=== PATIENT | male | born 1950 | race African-American/Black ===

== ENCOUNTER 2017-01-30 09:01 | Day surgery (SDC) | payer BC ==
[~2017-01-30] VITALS: Ht 190.5 cm; Wt 77.1 kg
[2017-01-30] VITALS (8 sets, daily range): BP systolic 101–134; BP diastolic 47–69
[~2017-01-30 09:01] MED LIST: ADVAIR 250-501 EACH INH; PANTOPRAZOLE SO40 MG ORAL; PREDNISONE PO
[2017-01-30] MEDS ORDERED: Lidocaine 1% MPF 10mg/ml 5ml ONE (09:02)
[2017-01-30] MEDS ORDERED: Propofol 10mg/ml 20ml IV ONE (09:02)
--- NOTE | 2017-01-30 10:44 | Short Stay Surgery H&P ---
History of Present Illness History of Present Illness Chief Complaint wt loss HPI Ap Loera is a 66 year old male who was admitted on for Abdominal Pain, Colon Screening Patient History Allergies: Coded Allergies: No Known Allergies (Unverified , 08/31/16) PAST MEDICAL HISTORY: (1) Sarcoidosis (2) Cholelithiases Past Surgeries: Social History: Medication History Scheduled Fluticasone/Salmeterol (Advair 250-50 Diskus), 1 PUFF INH EVERY 12 HOURS, ( Reported) [Prednisone ], 10 MG PO DAILY, (Reported) Discontinued Medications Pantoprazole* (Pantoprazole*), 40 MG ORAL DAILY, (Reported) Discontinued Reason: Pt stopped taking med Review of Systems Cardiovascular: Reports: no symptoms Respiratory: Reports: no symptoms Skeletal: Reports: no symptoms Gastrointestinal: Reports: no symptoms Genitourinary: Reports: no symptoms Neurologic: Reports: no symptoms Endocrine: Reports: no symptoms Hematologic: Reports: no symptoms Physical Exam Vital Signs Last Vital Signs Date Time Temp Pulse Resp B/P Pulse Ox O2 Delivery O2 Flow Rate FiO2 01/30/17 10:38 98.0 82 18 134/66 99 Room Air Skin: normal HENT: normal Heart: normal Lungs: normal Abdomen: normal Extremities: normal Plan Plan of Care colonoscopy, EGD Final Diagnosis: Attestation Are the patient's medical conditions optimized for surgery? Attestation Response: yes JEANNIE COTO January 30, 2017 10:44
--- NOTE | 2017-01-30 10:50 | Pre-Procedure Note/Attestation ---
Pre-Procedure Note/Attestation Complete Prior to Procedure Planned Procedure: not applicable Procedure Narrative: egd/colon Indications for Procedure Pre-Operative Diagnosis: wt loss Attestation I attest that I discussed the nature of the procedure; its benefits; risks and complications; and alternatives (and the risks and benefits of such alternatives ), prior to the procedure, with the patient (or the patient's legal players club representative). I attest that, if there was a reasonable possibility of needing a blood transfusion, the patient (or the patient's legal players club representative) was given the [facility] standardized written summary, pursuant to the Javi Huntingdon Blood Safety Act ([place] Health and Safety Code # 1645, as amended). I attest that I re-evaluated the patient just prior to the surgery and that there has been no change in the patient's H&P, except as documented below: JEANNIE COTO January 30, 2017 10:50
--- NOTE | 2017-01-30 11:07 | Anethesia Preoperative Eval ---
Anesthesia Pre-op PMH/ROS General Date of Evaluation: January 30, 2017 Time of Evaluation: 10:53 Anesthesiologist: armando ASA Score: ASA 2 Mallampati Score Class I : Soft palate, uvula, fauces, pillars visible Class II: Soft palate, uvula, fauces visible Class III: Soft palate, base of uvula visible Class IV: Only hard plate visible Mallampati Classification: Class II Surgeon: sharon Surgical Procedure: egd diagnostic/colonoscopy Anesthesia History: none Family History: no anesthesia problems Allergies: Coded Allergies: No Known Allergies (Unverified , 08/31/16) Medications: see eMAR Past Medical History Pulmonary: Reports: other - sarcoidosis Gastrointestinal/Genitourinary: Reports: GERD, other - papillary stenosis Endocrine: Reports: DM - preDM Anesthesia Pre-op Phys. Exam Physician Exam Last Vital Signs Date Time Temp Pulse Resp B/P Pulse Ox O2 Delivery O2 Flow Rate FiO2 01/30/17 10:38 98.0 82 18 134/66 99 Room Air Constitutional: NAD Neurologic: CN 2-12 intact Cardiovascular: RRR Respiratory: CTA Airway Exam Mallampati Score: Class II Neck: supple ROM: full Teeth: intact Anesthesia Pre-op A/P Studies Pre-op Studies: EKG - srwithPAC NSSTWabnormality Risk Assessment & Plan Plan: egd diagnostic/colonoscopy Status Change Before Surgery: ELIJAH Boateng January 30, 2017 11:07
--- NOTE | 2017-01-30 11:15 | Endoscopy Procedure Note ---
Endoscopy Procedure Note Indication for Procedure: wt loss Procedures Performed: EGD, colonoscopy Operative Findings/Diagnosis: gastritis, hemorrhoids, diverticulosis Specimen: yes Pt Tolerated Procedure Well: Yes Estimated Blood Loss: none Anesthesiologist: shona valenzuela Anesthesia: MAC Implant(s) used?: No 50 yrs or older w/o bx or poly: No 10yrs. F/U not recommended: Yes If not recommended, why?: Above average risk 10 yrs. F/U needed: Yes 18 years or older w/prev. colo: No JEANNIE COTO January 30, 2017 11:15
--- NOTE | 2017-01-30 11:58 | Immediate Post-Op Evaluation ---
Immediate Post-Op Evalulation Immediate Post-Op Evalulation Procedure: egd diagnostic/colonoscopy Date of Evaluation: January 30, 2017 Time of Evaluation: 11:42 IV Fluids: 0.9ns 450ml Blood Products: none Estimated Blood Loss: negligible Urinary Output: na Blood Pressure Systolic: 110 Blood Pressure Diastolic: 60 Pulse Rate: 71 Respiratory Rate: 20 O2 Sat by Pulse Oximetry: 98 Temperature (Fahrenheit): 97.8 Pain Score (1-10): 0 Nausea: No Vomiting: No Complications none Patient Status: awake, reacts, patent Hydration Status: adequate Drug: none ELIJAH BAL January 30, 2017 11:58
--- NOTE | 2017-01-30 12:02 | 48 Hour Post Anesthesia Eval ---
Post Anesthesia Evaluation Procedure: egd diagnostic/colonoscopy Date of Evaluation: January 30, 2017 Time of Evaluation: 11:58 Blood Pressure Systolic: 106 0: 59 Pulse Rate: 65 Respiratory Rate: 20 Temperature (Fahrenheit): 97.8 O2 Sat by Pulse Oximetry: 96 Airway: patent Nausea: No Pain Intensity: 0 Hydration Status: adequate Mental Status/LOC: patient returned to baseline Post-Anesthesia Complications: none ELIJAH BAL January 30, 2017 12:02
[2017-01-30 12:34] LABS: ALANINE AMINOTRANSFERASE 19 U/L (3-41); ANION GAP 14 (5-15); ASPARTATE AMINO TRANSFERASE 24 U/L (5-40); BASOPHILS % (AUTO) 0.4 % (0.0-2.0); CALCIUM 9.7 mg/dL (8.6-10.2); CARBON DIOXIDE 26 mEQ/L (20-30); CHLORIDE 96 mEQ/L (98-107); CREATININE 1.3 mg/dL (0.7-1.2); GLOMERULAR FILTRATION RATE > 60 mL/min (>60); LYMPHOCYTES % (AUTO) 12.1 % (20.0-45.0); MEAN CORPUSCULAR HEMOGLOBIN 25.1 PG (27.0-31.0); MEAN CORPUSCULAR HGB CONC 31.2 G/DL (32.0-36.0); MEAN CORPUSCULAR VOLUME 80 FL (80-99); MEAN PLATELET VOLUME 7.3 FL (6.5-10.1); NEUTROPHILS % (AUTO) 75.5 % (45.0-75.0); PLATELET COUNT 184 K/UL (150-450); POTASSIUM 4.6 mEQ/L (3.4-4.9); RED BLOOD COUNT 5.84 M/UL (4.70-6.10); RED CELL DISTRIBUTION WIDTH 14.1 % (11.6-14.8); SODIUM 136 mEQ/L (135-145); WHITE BLOOD COUNT 9.5 K/UL (4.8-10.8)
[2017-01-30 12:35] LABS: AMYLASE 21 U/L (10-110); HEMOLYSIS 11; LIPASE 12 U/L (< 60)
--- NOTE | 2017-01-30 12:38 | 48 Hour Post Anesthesia Eval ---
Post Anesthesia Evaluation Procedure: egd diagnostic/colonoscopy Date of Evaluation: January 30, 2017 Time of Evaluation: 12:10 Blood Pressure Systolic: 111 0: 57 Pulse Rate: 67 Respiratory Rate: 18 Temperature (Fahrenheit): 97.3 O2 Sat by Pulse Oximetry: 97 Airway: patent Nausea: No Vomiting: No Pain Intensity: 0 Hydration Status: adequate Cardiopulmonary Status: stable Mental Status/LOC: patient returned to baseline Post-Anesthesia Complications: none Follow-up care needed: N/A ELIJAH BAL January 30, 2017 12:38
[2017-01-30 12:49] LABS: BILIRUBIN,DIRECT 0.4 mg/dL (0.1-0.3)
--- NOTE | 2017-01-30 21:01 | Procedure Note ---
SURGEON: Darryl Amin M.D. PROCEDURE: Upper endoscopy biopsy and colonoscopy with biopsy. ANESTHESIOLOGIST: Trish Cardoza M.D. INSTRUMENT: Olympus adult flexible upper endoscope and colonoscope. INDICATION: Weight loss and abdominal pain. REASON FOR PROCEDURE: The procedure, risks, benefits, and possible consequences, including hemorrhage, aspiration, perforation and infection, and alternative treatments, were explained to the patient/legal guardian by Dr. Darryl Amin and the patient/legal guardian understood and accepted these risks. PROCEDURE: After informed consent was obtained and the patient was adequately sedated, Olympus upper endoscope was advanced from mouth into the second portion of the duodenum and retroflexion was performed in the stomach. The patient has a small hiatal hernia. Also, he had diffuse gastritis. Random biopsy from antrum was obtained to rule out H. pylori infection. At this time, the upper endoscope was retrieved and the patient was turned over for colonoscopy. First, a rectal exam was performed, which was normal. Then, the scope was advanced from the rectum into the cecum, documented by appendiceal orifice, ileocecal valve, and right upper quadrant palpation. Quality of prep was very good. The patient has significant diverticulosis throughout the colon, left more than right. There was an area of inflammation of about 25 cm in the sigmoid, most probably 25 cm from anal verge seen in the sigmoid, most probably acute diverticulitis with a lot of inflammation. This area was biopsied for peridiverticulitis and colitis. Also, the patient had one diminutive polyp in the rectosigmoid area, which was biopsied. Retroflexion of rectum showed evidence of internal hemorrhoids. The patient tolerated the procedure very well without any complication. SUMMARY FINDINGS: 1. Normal small hiatal hernia. 2. Gastritis, status post biopsy. 3. Significant diverticulosis. 4. Internal hemorrhoids. 5. One rectosigmoid polyp. 6. At the area from about 25 cm from anal verge, the patient has possible acute diverticulitis, peridiverticulitis, and colitis, status post biopsy. RECOMMENDATIONS: 1. Start Cipro and Flagyl. 2. Follow biopsy results. 3. Follow up in the office. 4. Consider doing a CT of the chest, abdomen and pelvis for evaluation of weight loss. I want to thank Dr. Rohit Garcia for this kind referral. Darryl Amin M.D. DR: RICHARD JOB#: [id number] CC: Rohit Garcia M.D.; Fax#: [phone]
== END 2017-01-30 12:55 | disposition home or self-care (01) ==
LOC: GAS 09:01
DX: R63.4 Abnormal weight loss (principal); K52.9 Noninfective gastroenteritis and colitis, unspecified; D12.7 Benign neoplasm of rectosigmoid junction; K64.8 Other hemorrhoids; K57.30 Diverticulosis of large intestine without perforation or abscess without bleeding; K29.50 Unspecified chronic gastritis without bleeding; K44.9 Diaphragmatic hernia without obstruction or gangrene; E11.9 Type 2 diabetes mellitus without complications; K21.9 Gastro-esophageal reflux disease without esophagitis; D86.9 Sarcoidosis, unspecified; K80.80 Other cholelithiasis without obstruction
CPT/HCPCS: 36415; 80053; 82150; 82248; 82378; 82962; 83690; 85025; 94003; 94150

== ENCOUNTER 2017-02-12 08:19 | Outpatient (CLI) | payer BC ==
--- NOTE | 2017-02-13 07:52 | Diagnostic Imaging Report ---
Indication: ABD PAIN Technique: Patient ingested oral contrast. IV administration nonionic contrast. Multiphasic spiral acquisitions obtained through the chest, abdomen, and pelvis Multiplanar reconstructions were generated. Total dose length product 1372 mGycm. CTDIvol(s) 8, 129, 13, 12 mGy. Radiation dose was minimized using automated exposure control Comparison: None Findings: Chest: Extensive honeycombing, bronchiectasis, and chronic appearing volume loss are seen in the lung apices bilaterally, involving essentially the entirety of both upper lobes. Scattered areas of what are presumably linear scarring are seen within the lower lobes, which are otherwise hyperinflated. No definite infiltrates. No effusions. There is calcified pleural thickening and scarring within the posterior costophrenic sulcus on the left. The heart is mildly enlarged. There is in particular dilatation of the right atrium. The pulmonary arteries are mildly ectatic but not frankly dilated. There is abundant dense soft tissue in the subcarinal region, which is confluent, without discrete mass. This area of confluence measures approximately 5.4 cm transverse by 1.8 cm. The esophagus is grossly unremarkable. There is apparent focal occlusion of the left innominate vein. There are fairly extensive paraspinal collaterals feeding into the azygos vein. The esophagus is unremarkable. There is bilateral gynecomastia. No axillary or chest wall mass or adenopathy. Abdomen pelvis: Normal appendix. There is abundant colonic stool. There is colonic diverticulosis. No evidence of diverticulitis. No small bowel distention or small bowel wall thickening. No free or loculated intraperitoneal air or fluid is evident. The gallbladder is surgically absent. The extrahepatic bile ducts are dilated, measuring up to 18 mm diameter. There is only minimal if any central intrahepatic biliary ductal dilatation. No definite downstream obstruction lesion is evident. No focal liver abnormality. The pancreas, spleen, adrenals are unremarkable. The right kidney demonstrates a 1.2 cm interpolar exophytic low-attenuation lesion, which demonstrates nonspecific attenuation. Both kidneys demonstrate subcentimeter low-attenuation lesions are too small to characterize, most likely benign simple cortical cysts. No pelvic mass or adenopathy. No retroperitoneal or mesenteric mass or adenopathy. The bones are unremarkable. Impression: Extensive bilateral upper lobe chronic fibrotic change, with bronchiectasis and extensive volume loss, involving the entirety of both upper lobes. Correlate with clinical history Associated compensatory hyperinflation of the lower lobes and right middle lobe 1.2 cm right renal lesion. Demonstrates higher than fluid attenuation. Suspect complex cyst, but solid mass not excludable. Ultrasound recommended for further evaluation Calcified pleural thickening and scarring within the posterior costophrenic sulcus on the left Cardiomegaly, in particular right atrial dilatation Abundant soft tissues in the subcarinal region, confluent, but without discrete mass. Adenopathy nonetheless not excludable. 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 Extensive resultant paraspinous collaterals Bilateral gynecomastia incidentally noted Colonic diverticulosis. No evidence of diverticulitis Surgically absent gallbladder. Dilated extra hepatic bile ducts, likely related to prior gallbladder surgery and patient's age. However, downstream obstruction not completely excluded. Recommend correlation with liver function tests. Consider MRCP if clinically indicated . Diverticulosis. No evidence of diverticulitis The CT scanner at [facility] is accredited by the [employer] and the scans are performed using protocols designed to limit radiation exposure to as low as reasonably achievable to attain images of sufficient resolution ad -- equate for diagnostic evaluation.
== END 2017-02-12 10:19 | disposition home or self-care (01) ==
LOC: CAT 08:19
DX: R10.9 Unspecified abdominal pain (principal); R63.4 Abnormal weight loss; I51.7 Cardiomegaly; R59.9 Enlarged lymph nodes, unspecified; N62 Hypertrophy of breast; K57.90 Diverticulosis of intestine, part unspecified, without perforation or abscess without bleeding; Z90.49 Acquired absence of other specified parts of digestive tract
CPT/HCPCS: 71260; 74177; Q9967